=== PATIENT | male | born 1955 | race Caucasian/White ===

== ENCOUNTER 2017-02-28 13:14 | Inpatient (IN) ==
[2017-02-28] MEDS ORDERED: ENOXAPARIN 100 MG/ML SYRINGE SUBCUT STA (13:43)
[2017-02-28] MEDS ORDERED: NITROGLYCERIN SL 0.4 MG TABLET SL PRN (13:43)
--- NOTE | 2017-02-28 13:46 | EKG Report ---
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
[2017-02-28 14:06] LABS: Basophils % 0.3 % (0.0-0.8); Eosinophils # 0.1 10*3/uL (0.0-0.87); Eosinophils % 1.1 % (0.00-10.9); Hematocrit 45.3 VOL% (42.0-52.0); Hemoglobin 15.6 GM/DL (14.0-18.0); Immature Granulocytes % 0.3 %; Immature Granulocytes Absolute 0.04 #; Lymphocytes # 2.3 10*3/uL (1.4-4.0); Lymphocytes % 20.2 % (21.2-54.2); Mean Corpuscular HGB Conc 34.4 GM/DL (32-36); Mean Corpuscular Hemoglobin 31 PG (27-34); Mean Corpuscular Volume 89.2 FL (87-102); Mean Platelet Volume 9.8 FL (9.6-12.0); Monocytes # 0.9 10*3/uL (0.11-0.8); Neutrophils % 70.1 % (38.7-73.9); Platelet Count 232 T/CUMM (130-400); Red Blood Count 5.08 MC/CUMM (3.8-5.5); Red Cell Distribution Width 14.3 % (9.3-17.3); White Blood Count 11.5 T/CUMM (4-12)
--- NOTE | 2017-02-28 14:20 | XRay Report ---
History: Chest pain Date: 02/28/2017 Study: Chest x-ray single view portable Comparison exam: No previous available There is cardiomegaly. There is no mediastinal mass. The patient is status post prior median sternotomy. The pulmonary vasculature is upper normal. There is no confluent infiltrate to suggest pneumonia. There is no gross layering pleural effusion. There is mild to moderate thoracic spondylosis. Impression: Cardiomegaly and borderline pulmonary venous hypertension appearance. No definite acute process otherwise PROCEDURE INTERPRETED AT [facility] DEPARTMENT OF RADIOLOGY Final Report Signed by: Dr. Tamica Siegel
[2017-02-28 14:46] LABS: Albumin 3.9 G/DL (3.4-5.0); Bilirubin,Total 3.2 MG/DL (0.2-1.0); Calcium 9.2 MG/DL (8.5-10.1); Magnesium 2.2 MG/DL (1.8-2.4); Osmolality,Calculated 268.2 MOS/KG (273-304); Total Protein 8.1 G/DL (6.4-8.3)
[2017-02-28] MEDS ORDERED: NITROGLYCERIN SL 0.4 MG TABLET SL ONE (14:49)
--- NOTE | 2017-02-28 14:53 | Emergency Department Note ---
Josemanuel Man Hilary, am scribing for, and in the presence of, Dakotah Romero MD 13:43. Heather Man Phillip K, MD, personally performed the services described in this documentation, ascribed by Mary Abernathy in my presence, and it is both accurate and complete [id number] . 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 Pt reports that he was driving, drinking coffee when hsi symptoms started. He had a CABG in 2009 but never had a treadmill or a treadmill test done. Pt confirms SOB, diaphoresis, nausea and left center CP but denies vomiting, cough or fever. No other complaints or problems stated in the ED. Onset (ago): hour(s) Consistency: constant Severity: mild Severity scale (1-10): 2 Quality: other (pressure/tightening) Allergies/Adverse Reactions: Allergies Allergy/AdvReac Type Severity Reaction Status Date / Time Sulfa (Sulfonamide Allergy ITCHING Verified 02/28/17 13:17 Antibiotics) Review of System - Review of System 12 point system: reviewed and no additional remarkable complaints except as stated - Review of System Constitutional: Present: diaphoresis. Absent: fever Respiratory: Present: respiratory distress (SOB) Cardiovascular: Present: chest pain Gastrointestinal: Present: nausea Medical,Surgical,& Family Hx - Medical History Musculoskeletal: History of: Musculoskeletal Problems (Arthritis) - Surgical History Cardiac Surgeries: Sugical HX of: Cardiac Surgery (CABG) - Social History Smoking Status: Current every day smoker Frequency of Alcohol Use: None Type of Drug Use: None Marital Status: Lives With:: Spouse Functional capacity: independent ambulation Exam Vital Signs: Vital Signs Temperature 98.3 F 02/28/17 13:35 Pulse Rate 94 H 02/28/17 13:35 Respiratory Rate 18 02/28/17 14:05 Blood Pressure 110/83 02/28/17 13:35 O2 Sat by Pulse Oximetry 96 02/28/17 13:16 - General General appearance: alert, in no apparent distress - Head Head exam: Present: atraumatic, normocephalic - Eye Eye exam: Present: normal appearance, PERRL, EOMI - ENT ENT exam: Present: mucous membranes moist, TM's normal bilaterally. Absent: mucous membranes dry - Neck Neck exam: Present: full ROM, trachea midline. Absent: tenderness - Chest Chest inspection: Present: symmetric chest wall rise, tenderness (slight chestwall tenderness) - Respiratory Respiratory exam: Present: rales (bibasilar). Absent: normal lung sounds bilaterally, respiratory distress - Cardiovascular Cardiovascular exam: Present: normal rhythm, tachycardia, normal heart sounds. Absent: murmur, rubs, gallop - Abdominal Exam Abdominal exam: Present: soft, normal bowel sounds. Absent: distention, tenderness - Extremities Exam Extremities exam: Present: full ROM. Absent: tenderness - Back Exam Back exam: Present: full ROM. Absent: tenderness - Neurological Exam Neurological exam: Present: alert, oriented X3, CN II-XII intact. Absent: motor sensory deficit - Psychiatric Psychiatric exam: Present: normal affect, normal mood - Skin Skin exam: Present: warm, dry, intact, normal color. Absent: rash Course Course Narrative: Patient discussed with cardiology. Results - Labs CBC & BMP: 02/28/17 14:01 02/28/17 14:01 Lab Results: I have reviewed the patients labs (Troponin is 0.05 and bilirubin is 3.6) Labs: Laboratory Tests 02/28/17 14:01 WBC 11.5 RBC 5.08 Hgb 15.6 Hct 45.3 Plt Count 232 Lymph % (Auto) 20.2 L Neut # (Auto) 8.0 H Gentry # (Auto) 0.9 H - EKG EKG results: interpreted by FRANCESCA, sinus rhythm (Old inferior and lateral ID) - Diagnostic Findings Procedure: Chest x-ray: report reviewed by me (Cardiomegaly and borderline pulmonary venous hypertension appearance. No definite acute process otherwise.) Disposition Clinical Impression: Unstable angina pectoris, Chest pain, Elevated bilirubin, Possible myocardial infarction Case discussed with: patient Disposition: Still a Patient Condition: Guarded Additional Instructions: Admit to cardiology.
[2017-02-28] MEDS ORDERED: ENOXAPARIN 100 MG/ML SYRINGE SUBCUT ONE (15:14)
--- NOTE | 2017-02-28 16:26 | EKG Report ---
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
[2017-02-28] MEDS ORDERED: POTASSIUM CHLORIDE 20 MEQ TABLET PO PRN (17:11)
[2017-02-28] MEDS ORDERED: ONDANSETRON 4 MG/2 ML VIAL IV PRN (17:11)
[2017-02-28] MEDS ORDERED: MORPHINE 2 MG/1 ML SYRINGE IV PRN (17:11)
--- NOTE | 2017-02-28 17:50 | Cardiology History & Physical ---
Milla Man April RN, am scribing for, and in the presence of, Rafa Hernandez MD 17:50. Assessment and Plan - Time spent with patient Time spent with patient: Greater than 30 minutes (Due to assessment, planning, documentation, medication) (1) Chest pain Status: Acute Assessment and plan: Initial troponin was 0.050. We will continue to cycle cardiac biomarkers. Because of known history of PE and DVT, we will get a CT of the chest. Current Visit: Yes (2) CAD (coronary artery disease) Status: Chronic Assessment and plan: According the patient he had four-vessel CABG in 2009. We will try to get these records. Current Visit: Yes (3) Chronic anticoagulation Status: Chronic Assessment and plan: He is chronically anticoagulated on warfarin. We will check an INR. 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 Galan is a 61 year old male with history of CAD. 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 This was done in [place], we will try to get these records. Denies having had a heart catheterization or stress test since that time. He also has a history of DVT and pulmonary embolus. He has an IVC filter and is chronically anticoagulated on warfarin. Other history includes diverticulitis, arthritis, and some type of clotting disorder. Other surgical history includes right total hip, 2 hernia repairs, colostomy, colostomy reversal, right rotator cuff, and cholecystectomy. He is adopted and does not know any of his family history. He is a 1 pack per day smoker. This morning while traveling, he developed chest pain in the center of his chest that he describes a tightness. He rated it an 8 on a scale of 1-10. He said it was a constant pain that would get worse when he took a deep breath, but no other known triggers or alleviators. He denies any radiation of pain. He also has shortness of breath, nausea, and diaphoresis associated with this pain. He presented to the emergency department for further evaluation. EKG sinus rhythm with heart rate of 82. Chest x-ray showed cardiomegaly and borderline pulmonary venous hypertension appearance. Troponin 0 0.050, BNP 265. Vital signs been stable, blood pressure 112/74. He was given sublingual nitro in the emergency department and his chest pain has improved. He now rates it a 2 on a scale of 1-10. The pain is not reproducible to palpation. He does continue to have discomfort if he takes a deep breath. He is in no acute distress and he does report that his dyspnea has improved. Home Medications Medication Instructions Recorded Confirmed Type Cyclobenzaprine HCl 5 mg PO TID 02/28/17 02/28/17 History Escitalopram [Lexapro] 20 mg PO DAILY 02/28/17 02/28/17 History Gabapentin Cap/Tab [Neurontin 300 mg PO TID 02/28/17 02/28/17 History Cap/Tab] Hydrocodone/Acetaminophen 1 each PO BID PRN 02/28/17 02/28/17 History [Hydrocodon-Acetaminophn 10-325] Temazepam [Restoril] 30 mg PO BEDTIME 02/28/17 02/28/17 History Warfarin [Coumadin] 7.5 mg PO SUTUTHSA 02/28/17 02/28/17 History Allergies Allergy/AdvReac Type Severity Reaction Status Date / Time Sulfa (Sulfonamide Allergy ITCHING Verified 02/28/17 13:17 Antibiotics) - Constitutional Constitutional: Present: as per HPI - Cardiovascular Cardiovascular: Present: chest pain at rest, diaphoresis, dyspnea, dyspnea on exertion. Absent: edema, radiating jaw, neck or arm pain, lightheadedness, orthopnea, palpitations - Respiratory Respiratory: Present: dyspnea, dyspnea on exertion. Absent: cough, hemoptysis, wheezing - Gastrointestinal Gastrointestinal: Present: nausea. Absent: abdominal pain, constipation, diarrhea, hematemesis, hematochezia, melena, vomiting - Genitourinary Genitourinary: Absent: dysuria, hematuria Medical,Surgical,& Family Hx - Medical History Cardio: History of: CAD, [place] Endocrine: History of: Dyslipidemia Respiratory: History of: Obstructive Sleep Apnea, Pulmonary Embolism Gastrointestinal: History of: Diverticulitis/ Diverticulosis, GERD Musculoskeletal: History of: Musculoskeletal Problems (Arthritis) Hematology: History of: Clotting Problems (DVT) - Surgical History Cardiac Surgeries: Sugical HX of: Cardiac Surgery (CABG in 2009) Abdominal Surgeries: Surgical HX of: Abdominal Surgery (Colostomy and colostomy reversal), Cholecystectomy, Hernia Repair Orthopedic Surgeries: Surgical HX of;: Orthopedic Surgery (Right rotator cuff, right total hip) Additional Surgical History: IVC filter - Family History Family History: noncontributory (Patient was adopted and is not aware of his family history) - Social History Smoking Status: Current every day smoker (Smokes 1 pack a day) Have you smoked in the last 12 months: Yes Time spent discussing smoking cessation with patient: 3 to 10 minutes Frequency of Alcohol Use: None Type of Drug Use: None Marital Status: Lives With:: Spouse Functional capacity: independent ambulation Cardiology Physical Exam - Constitutional Vitals: Vital Signs Temp Pulse Resp BP Pulse Ox 98.3 F 94 H 20 112/74 95 02/28/17 13:35 02/28/17 15:59 02/28/17 15:59 02/28/17 15:59 02/28/17 15:59 Intake and Output 02/28/17 02/28/17 02/28/17 06:59 14:59 22:59 Other: Weight 228 lb 220 lb 9 oz Patient Weight 03/01/17 06:59 Weight 220 lb 9 oz General appearance: normal weight, no acute distress - Head Head exam: Absent: abrasion, contusion, hematoma - Eye Eye exam: Present: EOMI. Absent: periorbital swelling, laceration to eyelids Pupils: Present: SYLVESTER - Neck Neck exam: Absent: lymphadenopathy, tenderness - Respiratory Respiratory exam: Present: clear to auscultation bilaterally. Absent: chest wall tenderness, decreased breath sounds - Cardiovascular Cardiovascular exam: Present: regular rate and rhythm. Absent: rubs - GI/Abdominal GI/Abdominal exam: Present: normal bowel sounds, soft. Absent: distended, tenderness - Extremities Exam Extremities exam: Present: normal capillary refill. Absent: edema - Neurological Exam Neurological exam: Present: alert, oriented X3 - Psychiatric Psychiatric exam: Present: normal affect, normal mood - Skin Skin exam: Present: warm, dry Result/EKG - Labs CBC & BMP: 02/28/17 14:01 02/28/17 14:01 Lab Results: I have reviewed the past 24 hour labs Labs: Laboratory Results - last 24 hr 02/28/17 02/28/17 02/28/17 14:01 14:01 14:01 WBC 11.5 RBC 5.08 Hgb 15.6 Hct 45.3 MCV 89.2 MCH 31 MCHC 34.4 RDW 14.3 Plt Count 232 MPV 9.8 Neut % (Auto) 70.1 Lymph % (Auto) 20.2 L Perry % (Auto) 8.0 Eos % (Auto) 1.1 Baso % (Auto) 0.3 Neut # (Auto) 8.0 H Lymph # (Auto) 2.3 Perry # (Auto) 0.9 H Eos # (Auto) 0.1 Baso # (Auto) 0.0 Immature Gran % 0.3 Nucleated RBC % 0.0 Immature Gran # 0.04 Nucleated RBCs # 0.00 Immature Plt Fraction 0.0 Sodium 134 L Potassium 4.0 Chloride 100 Carbon Dioxide 27 Anion Gap 11.0 BUN 14 Creatinine 1.00 GFR Calculation 102 BUN/Creatinine Ratio 14.00 Glucose 102 Calculated Osmolality 268.2 L Calcium 9.2 Magnesium 2.2 Total Bilirubin 3.20 H AST 47 H ALT 34 Alkaline Phosphatase 94 Troponin I B-Natriuretic Peptide 265 H Total Protein 8.1 Albumin 3.9 Globulin 4.2 H Albumin/Globulin Ratio 0.9 L 02/28/17 14:01 WBC RBC Hgb Hct MCV MCH MCHC RDW Plt Count MPV Neut % (Auto) Lymph % (Auto) Perry % (Auto) Eos % (Auto) Baso % (Auto) Neut # (Auto) Lymph # (Auto) Perry # (Auto) Eos # (Auto) Baso # (Auto) Immature Gran % Nucleated RBC % Immature Gran # Nucleated RBCs # Immature Plt Fraction Sodium Potassium Chloride Carbon Dioxide Anion Gap BUN Creatinine GFR Calculation BUN/Creatinine Ratio Glucose Calculated Osmolality Calcium Magnesium Total Bilirubin AST ALT Alkaline Phosphatase Troponin I 0.050 H B-Natriuretic Peptide Total Protein Albumin Globulin Albumin/Globulin Ratio - Diagnostic Findings Procedure: Chest x-ray: report reviewed by me - EKG EKG results: interpreted by me EKG shows: sinus rhythm David Man Michael, MD, personally performed the services described in this documentation, ascribed by Concetta Loyola RN in my presence, and it is both accurate and complete [id number] .
[2017-02-28 17:53] LABS: INR 1.4
[2017-02-28] MEDS: SODIUM CHLORIDE 0.45% 1,000 ML IV SCH (18:15)
[2017-02-28] MEDS: NITROGLYCERIN 2% OINT 1 INCH/GM PACK TOP SCH ×2 (18:16→23:20)
[2017-02-28 18:31] LABS: INR 1.4; PT Patient Result 14.7 SECS
[2017-02-28 18:48] LABS: Hepatitis A Ab IgM Quant 0.08 Index; Hepatitis A Ab IgM Result Negative (Negative); Hepatitis B Core IgM Quant 0.12 Index; Hepatitis B Core IgM Result Negative (Negative); Hepatitis B Surface Ag Quant 0.37 Index; Hepatitis B Surface Ag Result Negative (Negative); Hepatitis C Virus Ab Quant > 11.00 Index; Hepatitis C Virus Ab Result Positive (Negative)
--- NOTE | 2017-02-28 18:49 | CT Report ---
CT chest PE study Indication: Chest pain. History of pulmonary embolus. Comparison: None. Technique: CT of the chest was performed following the administration of intravenous contrast. In addition to multiple contiguous axial source images obtained from the thoracic inlet through the upper abdomen, coronal and sagittal MPR series were performed as were thin slab MIP reconstructions in the coronal and sagittal plane. The CT examination was performed using one or more of the following dose reduction techniques: Automatic exposure control, adjustment of the mA and kV according to patient size, or iterative reconstruction techniques. Findings: Lungs: Minimal atelectatic changes are noted dependently within the lung parenchyma. No pleural effusions are present. Aorta: No significant abnormality of the aorta is demonstrated. Pulmonary artery: Pulmonary artery is normal in size and demonstrates no significant abnormality. Lymph nodes: No adenopathy is noted within the axilla, isabel, or mediastinum. Heart: Heart is enlarged. Coronary artery calcifications are noted within the left and right coronary circulation. Left ventricular volume appears increased. Esophagus: The lower esophagus demonstrates circumferential wall thickening. Significance is uncertain. This could reflect evidence of esophagitis. Small hiatal hernia additionally is present. Osseous structures: Osseous structures of the thoracic spine, imaged rib cage, and imaged shoulder girdles demonstrate no acute abnormality. Moderate glenohumeral joint degenerative changes are present on the right. Cystic changes of the subchondral bony glenoid are present with additional cystic changes noted posteriorly along the right humeral head. Similar changes to a lesser degree are present on the left. Prior sternotomy is demonstrated. Soft tissues and muscular: Soft tissues and musculature of the chest wall as well as imaged lower neck demonstrate no acute findings. Upper abdomen: No acute findings are noted within the upper abdomen. Gallbladder is surgically absent. Impression: 1. No evidence of pulmonary artery embolus. 2. Dependent atelectatic changes appear moderate. Conceivably, infectious process is not entirely excluded. 3. Cardiomegaly. 4. Coronary artery calcifications. 02/28/2017 6:42 PM PROCEDURE INTERPRETED AT [facility] DEPARTMENT OF RADIOLOGY Final Report Signed by: Dr. Artemio Vargas
[2017-02-28] MEDS: CARVEDILOL 3.125 MG TABLET PO SCH (21:33)
[2017-02-28] MEDS: ROSUVASTATIN 10 MG TABLET PO SCH (21:33)
[2017-02-28] MEDS: CYCLOBENZAPRINE 10 MG TABLET PO SCH (21:33)
[2017-02-28] MEDS: TEMAZEPAM 15 MG CAPSULE PO SCH (21:33)
[2017-02-28] MEDS: GABAPENTIN 300 MG CAPSULE PO SCH (21:33)
[2017-03-01] MEDS: NITROGLYCERIN 2% OINT 1 INCH/GM PACK TOP SCH ×3 (05:40→17:11)
[2017-03-01 06:11] LABS: Basophils # 0.1 10*3/uL (0.0-0.2); Eosinophils # 0.4 10*3/uL (0.0-0.87); Eosinophils % 4.4 % (0.00-10.9); Hematocrit 46.4 VOL% (42.0-52.0); Hemoglobin 15.6 GM/DL (14.0-18.0); Immature Granulocytes % 0.5 %; Immature Granulocytes Absolute 0.04 #; Lymphocytes # 2.8 10*3/uL (1.4-4.0); Lymphocytes % 33.7 % (21.2-54.2); Mean Corpuscular HGB Conc 33.6 GM/DL (32-36); Mean Corpuscular Hemoglobin 31 PG (27-34); Mean Corpuscular Volume 90.6 FL (87-102); Mean Platelet Volume 10.1 FL (9.6-12.0); Monocytes # 0.9 10*3/uL (0.11-0.8); Monocytes % 10.4 % (1.7-12.7); Neutrophils # 4.2 10*3/uL (1.4-7.4); Platelet Count 213 T/CUMM (130-400); Red Blood Count 5.12 MC/CUMM (3.8-5.5); Red Cell Distribution Width 14.1 % (9.3-17.3); White Blood Count 8.4 T/CUMM (4-12)
[2017-03-01 06:31] LABS: INR 1.3
[2017-03-01] MEDS: SODIUM CHLORIDE 0.45% 1,000 ML IV SCH ×2 (06:39→23:35)
[2017-03-01 06:41] LABS: Calcium 8.8 MG/DL (8.5-10.1); Magnesium 2.4 MG/DL (1.8-2.4); Potassium 4.5 MMOL/L (3.5-5.1); Risk Ratio 5.46; VLDL CHOLESTEROL 19.6 MG/DL
[2017-03-01] MEDS: ESCITALOPRAM 10 MG TABLET PO SCH (10:02)
[2017-03-01] MEDS: CYCLOBENZAPRINE 10 MG TABLET PO SCH ×3 (10:03→21:09)
[2017-03-01] MEDS: CARVEDILOL 3.125 MG TABLET PO SCH ×2 (10:03→21:08)
[2017-03-01] MEDS: GABAPENTIN 300 MG CAPSULE PO SCH ×3 (10:03→21:09)
--- NOTE | 2017-03-01 11:14 | Cardiology Progress Note ---
Assessment and Plan (1) Chest pain Status: Acute Assessment and plan: SEE PLAN OF CARE LISTED BELOW. Current Visit: Yes (2) Hepatitis C Status: Chronic Assessment and plan: SEE PLAN OF CARE LISTED BELOW. Current Visit: Yes (3) Elevated bilirubin Status: Chronic Assessment and plan: SEE PLAN OF CARE LISTED BELOW. Current Visit: Yes (4) CAD (coronary artery disease) Status: Chronic Current Visit: Yes (5) Chronic anticoagulation Status: Chronic Assessment and plan: SEE PLAN OF CARE LISTED BELOW. Current Visit: Yes (6) Presence of IVC filter Status: Chronic Assessment and plan: SEE PLAN OF CARE LISTED BELOW. Current Visit: Yes (7) Dyslipidemia Status: Acute Assessment and plan: SEE PLAN OF CARE LISTED BELOW. Current Visit: Yes (8) History of NE (myocardial infarction) Status: Acute Assessment and plan: SEE PLAN OF CARE LISTED BELOW. Current Visit: Yes Cardiology - PN: Subj Interval history: SURVIVAL SPECIALIST: In [place] SUMMARY Mr. Galan is a 61 year old male with history of CAD. According the patient he had four-vessel CABG in 2009 after he had an NE. This was done in [place], we will try to get these records. Denies having had a heart catheterization or stress test since that time. He also has a history of DVT and pulmonary embolus. He has an IVC filter and is chronically anticoagulated on warfarin. Other history includes diverticulitis, arthritis, and some type of clotting disorder. Other surgical history includes right total hip, 2 hernia repairs, colostomy, colostomy reversal, right rotator cuff, and cholecystectomy. He is adopted and does not know any of his family history. He is a 1 pack per day smoker. Patient presented to [facility] yesterday with complaints of chest tightness. He was just passing through [place] while traveling to see his daughter in [place]. He felt that he should be further evaluated and presented to the emergency department. He has ruled out for NE. MARCH 01, 2017 Patient was seen and examined on the telemetry unit. He has done well overnight. He has ruled out for myocardial infarction. EKG this morning does not reveal any acute ischemic changes. Patient is without complaints of chest pain, heaviness and tightness. He continues to complain of significant dyspnea with exertion. I have discussed several options with the patient including outpatient stress test at [facility], stress test with his local veterinarian epidemiologist in [place] , inpatient stress test at our facility and heart catheterization. Patient has opted for stress test today at our facility. Patient has been n.p.o. We will plan for stress test today. Patient may be eligible for discharge later today if stress test is okay. I have discussed this case personally with Dr. Hernandez. Further plan and recommendations to follow. IMPRESSION AND PLAN 1. CHEST PAIN - Patient is now chest pain-free. Patient has ruled out for myocardial infarction. Cardiac biomarkers have been negative. EKG does not reveal any acute ischemic changes. Patient does continue to be short of breath with exertion. I have discussed several options with the patient. He has opted for the patient cardiac stress testing at our facility later today. This is been ordered. Patient may be eligible for discharge later this afternoon if stress test is okay. 2. HISTORY OF CAD - Continue beta-blockade, nitrates, lipid-lowering agent and aspirin. 3. HISTORY OF PE - Pulmonary embolism has been ruled out this hospitalization with CT chest. 4. PRESENCE OF IVC FILTER -chronic. Continue current plan of care. 5. CHRONIC ANTICOAGULATION - Chronically anticoagulated with Coumadin. INR today is subtherapeutic at 1.3. 6. HEPATITIS C - Chronic. Patient reports that he was told that he had appetite is 2 years ago. He has never followed up regularly with the GI specialist. This will be set up at discharge. 7. DYSLIPIDEMIA - Lipid panel has been reviewed. LDL 156. Crestor has been initiated. Patient will need repeat lipid panel in 4-6 weeks. Exam (Progress Note) - Constitutional Vitals: Period Temp Pulse Resp BP Sys/Lima Pulse Ox Last 24 Hr 97.0 F-99.3 F 66-97 18-20 103-126/68-83 90-96 Exam: General: Appears well with no apparent distress. Pleasant and cooperative. Appears comfortable. HEENT: PERRL, normocephalic, atraumatic. Mucous membranes moist. No jaundice noted. Conjunctiva moist and clear, sclerae anicteric Neck: No JVD/HJR, no thyromegaly or lymphadenopathy noted. No carotid bruit appreciated Cardiac: Regular rate and rhythm. No murmur rub or gallop. Lungs: Clear to auscultation without accessory muscle use to assist the respiratory pattern. Not requiring oxygen. Abdomen: Soft, bowel sounds normoactive. Nontender and nondistended. No abdominal bruit or thrill noted. No masses noted. Extremities: No clubbing, cyanosis noted. No edema noted. Upper extremity pulses 2+. Lower extremity pulses 2+. Capillary refill less than 3 seconds. Skin: No unusual lesions or rashes. No skin breakdown appreciated. Neuro: Awake, alert and oriented 3. Moves all extremities well without hemiparesis or paralysis. No essential tremor is appreciated. Result/EKG - Labs CBC & BMP: 03/01/17 05:34 03/01/17 05:34 Lab Results: I have reviewed the past 24 hour labs Labs: Laboratory Results - last 24 hr 02/28/17 02/28/17 02/28/17 14:01 14:01 14:01 WBC 11.5 RBC 5.08 Hgb 15.6 Hct 45.3 MCV 89.2 MCH 31 MCHC 34.4 RDW 14.3 Plt Count 232 MPV 9.8 Neut % (Auto) 70.1 Lymph % (Auto) 20.2 L [place] % (Auto) 8.0 Eos % (Auto) 1.1 Baso % (Auto) 0.3 Neut # (Auto) 8.0 H Lymph # (Auto) 2.3 [place] # (Auto) 0.9 H Eos # (Auto) 0.1 Baso # (Auto) 0.0 Immature Gran % 0.3 Nucleated RBC % 0.0 Immature Gran # 0.04 Nucleated RBCs # 0.00 Immature Plt Fraction 0.0 INR PT Patient/Control Mix Sodium 134 L Potassium 4.0 Chloride 100 Carbon Dioxide 27 Anion Gap 11.0 BUN 14 Creatinine 1.00 GFR Calculation 102 BUN/Creatinine Ratio 14.00 Glucose 102 Calculated Osmolality 268.2 L Calcium 9.2 Magnesium 2.2 Total Bilirubin 3.20 H AST 47 H ALT 34 Alkaline Phosphatase 94 Troponin I B-Natriuretic Peptide 265 H Total Protein 8.1 Albumin 3.9 Globulin 4.2 H Albumin/Globulin Ratio 0.9 L Triglycerides Cholesterol LDL Cholesterol VLDL Cholesterol HDL Cholesterol Heart Disease Risk Ratio Amylase Lipase Hepatitis A IgM Ab Hep Bs Antigen Hep B Core IgM Ab Hepatitis C Antibody 02/28/17 02/28/17 02/28/17 14:01 14:01 14:01 WBC RBC Hgb Hct MCV MCH MCHC RDW Plt Count MPV Neut % (Auto) Lymph % (Auto) [place] % (Auto) Eos % (Auto) Baso % (Auto) Neut # (Auto) Lymph # (Auto) [place] # (Auto) Eos # (Auto) Baso # (Auto) Immature Gran % Nucleated RBC % Immature Gran # Nucleated RBCs # Immature Plt Fraction INR 1.4 PT Patient/Control Mix 14.7 Sodium Potassium Chloride Carbon Dioxide Anion Gap BUN Creatinine GFR Calculation BUN/Creatinine Ratio Glucose Calculated Osmolality Calcium Magnesium Total Bilirubin AST ALT Alkaline Phosphatase Troponin I 0.050 H B-Natriuretic Peptide Total Protein Albumin Globulin Albumin/Globulin Ratio Triglycerides Cholesterol LDL Cholesterol VLDL Cholesterol HDL Cholesterol Heart Disease Risk Ratio Amylase 77 Lipase 92.0 Hepatitis A IgM Ab Hep Bs Antigen Hep B Core IgM Ab Hepatitis C Antibody 02/28/17 02/28/17 02/28/17 17:07 17:15 17:15 WBC RBC Hgb Hct MCV MCH MCHC RDW Plt Count MPV Neut % (Auto) Lymph % (Auto) [place] % (Auto) Eos % (Auto) Baso % (Auto) Neut # (Auto) Lymph # (Auto) [place] # (Auto) Eos # (Auto) Baso # (Auto) Immature Gran % Nucleated RBC % Immature Gran # Nucleated RBCs # Immature Plt Fraction INR 1.4 PT Patient/Control Mix 15.0 Sodium Potassium Chloride Carbon Dioxide Anion Gap BUN Creatinine GFR Calculation BUN/Creatinine Ratio Glucose Calculated Osmolality Calcium Magnesium Total Bilirubin AST ALT Alkaline Phosphatase Troponin I 0.046 H B-Natriuretic Peptide Total Protein Albumin Globulin Albumin/Globulin Ratio Triglycerides Cholesterol LDL Cholesterol VLDL Cholesterol HDL Cholesterol Heart Disease Risk Ratio Amylase Lipase Hepatitis A IgM Ab Negative Hep Bs Antigen Negative Hep B Core IgM Ab Negative Hepatitis C Antibody Positive A 02/28/17 02/28/17 03/01/17 19:56 22:59 05:34 WBC RBC Hgb Hct MCV MCH MCHC RDW Plt Count MPV Neut % (Auto) Lymph % (Auto) [place] % (Auto) Eos % (Auto) Baso % (Auto) Neut # (Auto) Lymph # (Auto) [place] # (Auto) Eos # (Auto) Baso # (Auto) Immature Gran % Nucleated RBC % Immature Gran # Nucleated RBCs # Immature Plt Fraction INR 1.3 PT Patient/Control Mix 14.0 Sodium Potassium Chloride Carbon Dioxide Anion Gap BUN Creatinine GFR Calculation BUN/Creatinine Ratio Glucose Calculated Osmolality Calcium Magnesium Total Bilirubin AST ALT Alkaline Phosphatase Troponin I 0.043 0.034 B-Natriuretic Peptide Total Protein Albumin Globulin Albumin/Globulin Ratio Triglycerides Cholesterol LDL Cholesterol VLDL Cholesterol HDL Cholesterol Heart Disease Risk Ratio Amylase Lipase Hepatitis A IgM Ab Hep Bs Antigen Hep B Core IgM Ab Hepatitis C Antibody 03/01/17 03/01/17 05:34 05:34 WBC 8.4 RBC 5.12 Hgb 15.6 Hct 46.4 MCV 90.6 MCH 31 MCHC 33.6 RDW 14.1 Plt Count 213 MPV 10.1 Neut % (Auto) 50.0 Lymph % (Auto) 33.7 [place] % (Auto) 10.4 Eos % (Auto) 4.4 Baso % (Auto) 1.0 H Neut # (Auto) 4.2 Lymph # (Auto) 2.8 [place] # (Auto) 0.9 H Eos # (Auto) 0.4 Baso # (Auto) 0.1 Immature Gran % 0.5 Nucleated RBC % 0.0 Immature Gran # 0.04 Nucleated RBCs # 0.00 Immature Plt Fraction 0.0 INR PT Patient/Control Mix Sodium 136 Potassium 4.5 Chloride 102 Carbon Dioxide 28 Anion Gap 10.5 BUN 16 Creatinine 0.90 GFR Calculation 115 BUN/Creatinine Ratio 17.00 Glucose 83 Calculated Osmolality 271.0 L Calcium 8.8 Magnesium 2.4 Total Bilirubin AST ALT Alkaline Phosphatase Troponin I B-Natriuretic Peptide Total Protein Albumin Globulin Albumin/Globulin Ratio Triglycerides 98 Cholesterol 191 LDL Cholesterol 125.0 VLDL Cholesterol 19.6 HDL Cholesterol 35 L Heart Disease Risk Ratio 5.46 Amylase Lipase Hepatitis A IgM Ab Hep Bs Antigen Hep B Core IgM Ab Hepatitis C Antibody - EKG EKG results: interpreted by me, sinus rhythm (Q waves in inferiolateral leads suggesting old NE.)
[2017-03-01] MEDS ORDERED: POTASSIUM CHLORIDE RIDER 10 MEQ in PREMIX 1 EACH IV PRN (14:17)
[2017-03-01] MEDS ORDERED: DIAZEPAM 5 MG TABLET PO ONE (14:17)
[2017-03-01] MEDS ORDERED: MAGNESIUM SULF RIDER 2 GM in PREMIX 1 EACH IV PRN (14:17)
[2017-03-01] MEDS ORDERED: diphenhydrAMINE CAP 25 MG CAPSULE PO ONE (14:17)
--- NOTE | 2017-03-01 16:45 | Nuclear Medicine Report ---
DATE: 03/01/2017 NUCLEAR STRESS TEST Mr. Galan is a 61-year-old male with a history of coronary artery disease, who came in to the hosp [facility] with chest pain symptoms. He is undergoing a stress myocardial perfusion study. He received th e rest myocardial perfusion study after 10 mCi of technetium-99m bound to sestamibi. He then underwe nt a full Adriane protocol stress test exercising for a total of 4-1/2 minutes, achieving a maximum hea rt rate of 134 beats per minute, which is 85% of his age predicated maximum. During exercise, the pa viv had no clinical or EKG signs of cardiac ischemia. [place] exercise, he received a 30 mCi Tech netium 99m bound to Sestamibi. Repeat myocardial perfusion imaging was performed. Comparison of the stress and rest myocardial perfusion images revealed a large severe fixed defect in the inferior wal l consistent with previous inferior myocardial infarction. There is some mild thinning in the apical region, which is unchanged on stress and rest images. I do not see any significant cardiac ischemia on the study. Quantitative gated images calculated left ventricular ejection fraction of 27%. Ther e is severe inferior hypokinesis as well as mild global hypokinesis. IMPRESSION: 1. CLINICALLY AND ELECTRICALLY NEGATIVE MAXIMAL FULL ADRIANE PROTOCOL STRESS TEST. 2. THE PATIENT HAS EVIDENCE OF AN OLD INFERIOR MYOCARDIAL INFARCTION. I DO NOT SEE ANY EVIDENCE OF CARDIAC ISCHEMIA AT THIS TIME. 3. LEFT VENTRICULAR EJECTION FRACTION IS SEVERELY REDUCED WITH WALL MOTION ABNORMALITY DESCRIBED ABOVE. CONCLUSION: These results are most consistent with an old inferior myocardial infarction with a severe ischemic c ardiomyopathy. I do not see any significant ischemia at this time. The patient should be considered for internal cardiac defibrillator. Procedure performed and interpreted at [facility] Department of Radiology.
[2017-03-01] MEDS ORDERED: ASPIRIN EC 325 MG TABLET PO ONE (17:21)
[2017-03-01] MEDS: ROSUVASTATIN 10 MG TABLET PO SCH (21:08)
[2017-03-01] MEDS: TEMAZEPAM 15 MG CAPSULE PO SCH (21:08)
[2017-03-02 05:25] LABS: Basophils % 0.5 % (0.0-0.8); Eosinophils # 0.3 10*3/uL (0.0-0.87); Eosinophils % 3.8 % (0.00-10.9); Hematocrit 43.9 VOL% (42.0-52.0); Hemoglobin 14.8 GM/DL (14.0-18.0); Immature Granulocytes % 0.6 %; Immature Granulocytes Absolute 0.05 #; Lymphocytes # 2.5 10*3/uL (1.4-4.0); Lymphocytes % 31.5 % (21.2-54.2); Mean Corpuscular HGB Conc 33.7 GM/DL (32-36); Mean Corpuscular Hemoglobin 30 PG (27-34); Mean Corpuscular Volume 90.1 FL (87-102); Mean Platelet Volume 10.3 FL (9.6-12.0); Monocytes # 0.7 10*3/uL (0.11-0.8); Monocytes % 9.1 % (1.7-12.7); Neutrophils # 4.4 10*3/uL (1.4-7.4); Neutrophils % 54.5 % (38.7-73.9); Platelet Count 214 T/CUMM (130-400); Red Blood Count 4.87 MC/CUMM (3.8-5.5); Red Cell Distribution Width 14.2 % (9.3-17.3); White Blood Count 8.1 T/CUMM (4-12)
[2017-03-02 06:01] LABS: Calcium 9.1 MG/DL (8.5-10.1); Magnesium 2.5 MG/DL (1.8-2.4); Osmolality,Calculated 279.7 MOS/KG (273-304); Potassium 4.2 MMOL/L (3.5-5.1)
[2017-03-02] MEDS: NITROGLYCERIN 2% OINT 1 INCH/GM PACK TOP SCH ×4 (06:21→17:53)
[2017-03-02] MEDS ORDERED: DIAZEPAM 5 MG TABLET PO ONE (07:26)
[2017-03-02] MEDS ORDERED: DIAZEPAM 5 MG TABLET ONE (07:26)
[2017-03-02] MEDS ORDERED: diphenhydrAMINE CAP 50 MG CAPSULE ONE (07:26)
[2017-03-02] MEDS ORDERED: diphenhydrAMINE CAP 50 MG CAPSULE PO ONE (07:26)
[2017-03-02] MEDS: CARVEDILOL 3.125 MG TABLET PO SCH ×3 (07:33→21:26)
--- NOTE | 2017-03-02 07:33 | EKG Report ---
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
[2017-03-02] MEDS ORDERED: ASPIRIN 325 MG TABLET ONE (07:34)
[2017-03-02] MEDS ORDERED: ASPIRIN 325 MG TABLET PO ONE (07:36)
[2017-03-02] MEDS ORDERED: HEPARIN/NACL 0.9% 2 UNITS/ML 1,000 ML IV ONE (08:14)
[2017-03-02] MEDS ORDERED: LIDOCAINE 1% 20 ML VIAL ONE (08:14)
[2017-03-02] MEDS ORDERED: MIDAZOLAM 2 MG/2 ML VIAL ONE (08:43)
[2017-03-02] MEDS ORDERED: HYDROmorphone 2 MG/1 ML VIAL ONE (08:43)
--- NOTE | 2017-03-02 08:59 | History and Physical Update ---
Sedation H&P Update - History and Physical H&P was reviewed, the patient examined and there: are no changes in the patients condition since last H&P was completed. - Dictation Physical: refer to H&P completed by admitting physician - Physical Exam Mental Status: alert and oriented Heart: regular rate and rhythm Lung: clear to auscultation Abdomen: within normal limits Vitals: within normal limits - Sedation Plan for Sedation: moderate Patient Consent: Risks and benefits were discussed with patient,including infection, ASA Class: II Airway Assessment: Class II: Soft palate, uvula, fauces visible
[2017-03-02] MEDS ORDERED: BIVALIRUDIN 250 MG VIAL IV ONE (09:36)
[2017-03-02] MEDS ORDERED: CLOPIDOGREL 300 MG TABLET ONE (09:57)
--- NOTE | 2017-03-02 10:24 | Cardiac Catheterization ---
Date of Procedure:: 03/02/17 Pre-op Diagnosis: Chest pain CAD Post-op diagnosis: same Procedure: Cardiac catheterization procedure note #1 left heart catheterization #2 selective coronary angiography #3 vein graft angiography #4 CARR angiography #5 left ventriculography #6 successful proximal LAD stent Omnipaque was used for procedure Description of procedure Following sterile preparation draping of the right groin, local anesthesia was achieved by infiltration with 1% Xylocaine. Using a Cook needle the right femoral artery was cannulated and a #6 sheath was inserted. A 6 Serbian pigtail catheter was advanced retrograde across aortic valve into the left pedicle and the end-diastolic pressure was recorded. Left ventriculography was performed the ADORNO projection using 24 cc of contrast. A pullback was made across aortic valve. The pigtail catheter change for a 6 Serbian left Jovita catheter and left coronary angiography was performed in several ADORNO and FAROESE projections. Catheter change for a 6 Serbian right Amplatz catheter and right coronary angiography was performed in the FAROESE projection only. The vein grafts were then cannulated and vein graft angiography was performed in PA projection only. No change for a 6 Serbian internal mammary artery catheter and CARR angiography was performed in ADORNO and FAROESE projections. The catheter was exchanged for a 6 Serbian JL 5 guiding catheter in the left main was recannulated. The patient was bolused with Angiomax and placed on infusion per protocol. A pro-water flex wire was introduced and carefully advanced into the large diagonal branch. Direct stenting was then performed across the proximal LAD using a 3.5 x 12 member Synergy drug-eluting stent. Several flush injections confirmed good positioning of the stent. The maximum inflation pressure was 19 lillian for 30 seconds, creating a 3.94 mm lumen. The balloon was then deflated and brought back to the guiding catheter going to guidewire across the lesion. Repeat and shortness are widely patent vessel with mild residual narrowing, no dissection and brisk runoff. The guiding catheter and sheath were then removed and the femoral arteriotomy site was sealed percutaneously minx closure device with prompt cessation of bleeding and prompt return of normal for pulses. No complications ensued. The patient is transferred back to telemetry in stable condition. Hemodynamic data Aortic pressure 126/54 mean of 84 Left ventricle 126/10 Selective coronary angiography Left main trunk is patent and bifurcates. The LAD is calcified and has an 80% proximal stenosis before the first septal and large first diagonal branch which is patent. The second diagonal branch has moderate proximal disease. The circumflex has mild diffuse disease. The right coronary is occluded in its mid segment and fills by bridging collaterals and also by [id number] collaterals that filled the distal vessel. The saphenous vein graft to the right coronary is occluded. The saphenous vein graft to circumflex is occluded. The CARR graft to the LAD is widely patent. The distal LAD wraps on the apex and has mild disease only. Left ventriculography The left ventricle is dilated. There is moderate global hypokinesis. Ejection fraction 35%. No mitral regurgitation. Conclusions #1 LVEDP 10 #2 moderate global hypokinesis EF 35% #3 no mitral regurgitation #4 no aortic valve gradient #5 left main trunk-patent #6 LAD-calcified 80% proximal before first septal family health nurse practitioner #7 large first diagonal branch-patent #8 second diagonal branch-moderate diffuse disease #9 circumflex system moderate diffuse disease- #10 dominant right coronary-occluded mid segment with bridging collaterals and pqni-[id number] collaterals from the apical LAD filling distal branches #11 SVG to RCA-occluded at origin #12 SVG to circumflex-occluded at origin #13 CARR graft to LAD-widely patent. The distal LAD wraps on the apex and has mild irregularities only #14 successful proximal LAD stent. An 80% stenosis was reduced to mild irregularities using a 3.5 x 12 mm synergy drug-eluting stent, postdilated to 19 temperatures for 30 seconds, creating a 3.94 mm lumen. Good result obtained. Disposition The patient status post three-vessel CABG 2009 in [place]. The vein graft to right coronary and vein graft circumflex are occluded. The CARR graft to LAD is widely patent with good runoff and provides left to right collaterals to distal right coronary branches. He underwent stenting of the proximal LAD with a 3.5 by 12 mm Synergy drug-eluting stent. It was postdilated to 19 lillian, creating a 3.94 mm lumen. Good result obtained. Ejection fraction is 35% with moderate global hypokinesis. Continue normal saline hydration and recheck BMP in a.m. and CPK troponin. Cine pictures were reviewed with the patient. Implants: Successful proximal LAD stent 3.5 x 12 mm synergy drug-eluting stent, postdilated to 19 lillian creating a 3.94 mm lumen. Good result obtained. Anesthesia: moderate conscious sedation Surgeon / Physician: Jian Dewey Estimated blood loss: minimal Specimens: none sent Condition: stable Disposition: floor - Medications / Follow-up
[2017-03-02] MEDS: SODIUM CHLORIDE 0.45% 1,000 ML IV SCH (10:46)
--- NOTE | 2017-03-02 12:11 | EKG Report ---
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
[2017-03-02] MEDS: CYCLOBENZAPRINE 10 MG TABLET PO SCH ×3 (14:27→21:25)
[2017-03-02] MEDS: GABAPENTIN 300 MG CAPSULE PO SCH ×3 (14:27→21:25)
[2017-03-02] MEDS: ESCITALOPRAM 10 MG TABLET PO SCH (14:27)
[2017-03-02] MEDS: TEMAZEPAM 15 MG CAPSULE PO SCH (21:25)
[2017-03-02] MEDS: ROSUVASTATIN 10 MG TABLET PO SCH (21:25)
[2017-03-03] MEDS: NITROGLYCERIN 2% OINT 1 INCH/GM PACK TOP SCH ×3 (01:59→13:23)
[2017-03-03 05:18] LABS: Blood Urea Nitrogen 24 MG/DL (7-18); Calcium 8.9 MG/DL (8.5-10.1); Glucose 97 MG/DL (74-106); Osmolality,Calculated 280.5 MOS/KG (273-304); Sodium 139 MMOL/L (136-145)
--- NOTE | 2017-03-03 07:58 | EKG Report ---
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
[2017-03-03] MEDS: GABAPENTIN 300 MG CAPSULE PO SCH ×2 (08:28→16:57)
[2017-03-03] MEDS: CYCLOBENZAPRINE 10 MG TABLET PO SCH ×2 (08:28→16:57)
[2017-03-03] MEDS: ESCITALOPRAM 10 MG TABLET PO SCH (08:28)
[2017-03-03] MEDS ORDERED: CLOPIDOGREL 75 MG TABLET PO SCH (09:00)
--- NOTE | 2017-03-03 10:53 | Discharge Summary ---
Hospital Course - Hospital Course Hospital Course: The patient is a 61-year-old male who was traveling to visit his family in [place] when he began having anginal symptoms. He stopped at our emergency room as was admitted for further workup and management. He has a history of previous coronary bypass surgery. We will perform cardiac catheterization which revealed the following #1 LVEDP 10 #2 moderate global hypokinesis EF 35% #3 no mitral regurgitation #4 no aortic valve gradient #5 left main trunk-patent #6 LAD-calcified 80% proximal before first septal case checker #7 large first diagonal branch-patent #8 second diagonal branch-moderate diffuse disease #9 circumflex system moderate diffuse disease- #10 dominant right coronary-occluded mid segment with bridging collaterals and xset-[id number]-[id number] collaterals from the apical LAD filling distal branches #11 SVG to RCA-occluded at origin #12 SVG to circumflex-occluded at origin #13 CARR graft to LAD-widely patent. The distal LAD wraps on the apex and has mild irregularities only #14 successful proximal LAD stent. An 80% stenosis was reduced to mild irregularities using a 3.5 x 12 mm synergy drug-eluting stent, postdilated to 19 temperatures for 30 seconds, creating a 3.94 mm lumen. Good result obtained. Disposition The patient status post three-vessel CABG 2009 in [place]. The vein graft to right coronary and vein graft circumflex are occluded. The CARR graft to LAD is widely patent with good runoff and provides left to right collaterals to distal right coronary branches. He underwent stenting of the proximal LAD with a 3.5 by 12 mm Synergy drug-eluting stent. It was postdilated to 19 lillian, creating a 3.94 mm lumen. Good result obtained. Ejection fraction is 35% with moderate global hypokinesis. The patient did well after the intervention. He had no further anginal or other symptoms. He has a tester armature or fields, Dr. Chang in [place]. At this time I think he is stable for discharge home. I have instructed him to follow-up with his primary tester armature or fields within the next week or 2. Of note, the patient also has a history of deep venous thrombosis/IVC filter/pulmonary embolus, and is on chronic anticoagulation with Coumadin. I have instructed him to be very careful watching for any sort of bleeding symptoms because we are placing him on dual antiplatelet therapy after the stent and he still will be on Coumadin. And is to follow-up on anticoagulation monitoring with his primary tester armature or fields. Diagnosis - Discharge Diagnosis (1) Chest pain Status: Acute (2) CAD (coronary artery disease) Status: Chronic (3) Chronic anticoagulation Status: Chronic (4) Presence of IVC filter Status: Chronic Specialty Discharge - Follow Up or Referrals Discharge Plan - Discharge Data Disposition: Disch To Home/Self Care - Discharge Medications New Aspirin 81 mg PO DAILY #100 tab.chew Carvedilol [Coreg] 3.125 mg PO BID #60 tablet Clopidogrel [Plavix] 75 mg PO DAILY #30 tablet Losartan [Cozaar] 25 mg PO DAILY #30 tablet Rosuvastatin [Crestor] 10 mg PO BEDTIME #30 tablet Continue Gabapentin Cap/Tab [Neurontin Cap/Tab] 300 mg PO TID Escitalopram [Lexapro] 20 mg PO DAILY Warfarin [Coumadin] 7.5 mg PO SUTUTHSA Cyclobenzaprine HCl 5 mg PO TID Hydrocodone/Acetaminophen [Hydrocodon-Acetaminophn 10-325] 1 each PO BID PRN PRN Reason: Pain Temazepam [Restoril] 30 mg PO BEDTIME - Follow Up or Referral Follow Up: Dr Bernardo [Other] (Please send a copy of his discharge summary to his primary tester armature or fields Dr. Chang in [facility].) - Forms/Instructions Instructions: Left Heart Catheterization (DC), Transthoracic Echocardiogram (DC ), How to Stop Smoking (GEN), Heart Healthy Diet (GEN), Cigarette Smoking and Your Health (GEN), Coronary Intravascular Stent Placement (DC) Exam - Constitutional Vitals: Period Temp Pulse Resp BP Sys/Lima Pulse Ox Last 24 Hr 96.2 F-99.1 F 58-96 16-20 101-154/63-87 96-100 Discharge Results Procedures and tests throughout hospitalization: Pending Orders 03/02/17 08:37 CL heart Routine Labs on day of discharge: Labs from last 24 hours 03/03/17 04:13 Sodium 139 Potassium 4.0 Chloride 106 Carbon Dioxide 26 Anion Gap 11.0 BUN 24 H Creatinine 0.90 GFR Calculation 115 BUN/Creatinine Ratio 26.00 H Glucose 97 Calculated Osmolality 280.5 Calcium 8.9 Total Creatine Kinase 243 CK-MB (CK-2) 4.4 H Troponin I 1.210 H D DS: Provider Date of admission: 03/02/17 14:22 Primary care physician: . No PCP Attending physician on admission: Rafa Hernandez MD Consults: 03/02/17 10:27 Consult to Cardiac Rehabilitation [CONS] Routine Reason for Cardiac Rehabilitation: Risk Factor Modification Other Consult Comment: Evaluate and recommend Discharging clinician: Rafa Hernandez MD
[2017-03-03 16:16] VITALS: BP 117/70
== END 2017-03-03 17:45 | disposition home or self-care (01) | DRG 247 ==
LOC: N.ED 13:14 → N.TELES 13:14
PROVIDERS: ADMIT Internal Medicine Cardiovascular Disease; ATTEND Internal Medicine Cardiovascular Disease